=== PATIENT | male | born 1935 | race Caucasian/White ===

== ENCOUNTER 2016-12-18 10:02 | Emergency (ER) | payer MEDICARE, BC ==
[2016-12-18 10:50] LABS: Hemoglobin 15.1 gm/dL (13.5-18.0); Mean Cell Volume 101.9 fl (78-100); Mean Corpuscular Hgb Conc 34.3 g/dl (32-36); Mean Platelet Volume 10.3 fl (6.0-9.5); Neutrophil # 6.8 K/mm3 (1.3-6.0); Neutrophil % 77.5 % (42-75.0); Platelet Count 166 K/mm3 (150-450); Red Blood Count 4.32 M/mm3 (4.7-6.0); Red Cell Distribution Width 11.6 % (11.5-14.0); White Blood Count 8.7 K/mm3 (4.0-10.5)
[2016-12-18 11:01] LABS: Urine Bilirubin 1 mg/dl (NEGATIVE); Urine Blood Negative /ul (NEGATIVE); Urine Ketone 5 mg/dL (NEGATIVE); Urine Nitrite Negative (NEGATIVE); Urine Protein Negative (NEGATIVE); Urine Specific Gravity >=1.030 SP.GR. (1.005-1.030); Urine Urobilinogen Normal (NORMAL); Urine pH 5.5 pH (5.0-7.0)
[2016-12-18 11:02] LABS: Albumin * 3.7 gm/dl (3.4-5.0); Anion Gap 10.7 mmol/L (6.8-13.8); BUN/Creatinine Ratio 10.2 (9.0-21.6); Bilirubin, Total 0.7 mg/dL (0.0-1.1); Calcium * 9.1 mg/dL (7.9-10.9); Potassium 4.7 mmol/L (3.4-4.6); Total Protein 7.6 gm/dL (6.2-8.2)
[2016-12-18 11:04] LABS: Urine Appearance Clear; Urine Color Amber
[2016-12-18 11:11] LABS: Urine Bacteria None Seen; Urine RBC None Seen /hpf (0-5); Urine WBC 0-5 /hpf (0-5)
[2016-12-18] MEDS ORDERED: DIATRIZOATE MEGLU/DIATRIZO SOD 30 ML BTL PO ONE (11:39)
[2016-12-18] MEDS ORDERED: DIATRIZOATE MEGLU/DIATRIZO SOD 30 ML BTL ONE (11:40)
[2016-12-18] MEDS ORDERED: ONDANSETRON HCL/PF 2 MG/ML VIAL IV ONE (14:54)
[2016-12-18] MEDS ORDERED: HYDROmorphone HCL 1 MG/ML DISP.SYRIN IV ONE (14:54)
[2016-12-18] MEDS ORDERED: CIPROFLOXACIN LACTATE/D5W 400 MG/200 ML BAG IV SCH (15:00)
[2016-12-18] MEDS ORDERED: metroNIDAZOLE/SODIUM CHLORIDE 500 MG/100 ML BAG IV SCH (15:00)
[2016-12-18] MEDS ORDERED: PIPERACILLIN SODIUM/TAZOBACTAM 3.375 GM in DEXTROSE 5 % IN WATER 100 ML IV ONE ×2 (15:05)
--- NOTE | 2016-12-18 15:19 | ERNOTE ---
Abdominal HPI - Narrative Date of Service: 12/18/16 - General Chief Complaint: Abdominal Pain Time Seen by Provider: 12/18/16 11:02 Source: patient - Immun/Allergies/Home Medications Immunizatons: IMMUNIZATION HX History of Influenza Vaccine Yes Allergies/Adverse Reactions: Allergies cefdinir [From Omnicef] Allergy (Verified 12/18/16 10:33) metronidazole [From Flagyl] Allergy (Verified 12/18/16 10:33) naproxen Allergy (Verified 12/18/16 10:33) tramadol Allergy (Verified 12/18/16 10:33) Home Medications: HOME MEDICATIONS Allopurinol 09/20/15 [Last Taken Unknown] Citalopram HBr 09/20/15 [Last Taken Unknown] Finasteride 09/20/15 [Last Taken Unknown] Lisinopril 09/20/15 [Last Taken Unknown] Meloxicam 09/20/15 [Last Taken Unknown] Omeprazole 09/20/15 [Last Taken Unknown] Simvastatin 09/20/15 [Last Taken Unknown] Vitamin D 09/20/15 [Last Taken Unknown] Cyclobenzaprine HCl 03/25/16 [Last Taken Unknown] Amox Tr/Potassium Clavulanate [Augmentin 875-125 Tablet] 875 mg PO Q12H #20 tab 12/18/16 [Last Taken Unknown] - History of Present Illness Narrative: left lower quadrant abd pain since 299 today - Patient's Past Medical History Patient History - Medical: GERD Patient History - Cardiac/Respiratory: Hypertension, Hyperlipidemia Patient History - Cancer: No Hx of Cancer Patient History - Surgical Procedures: Other Patient History - Other: None - Social History Living Situations: home Psych History: No pertinent hx Alcohol Use: none Drug Use: none - Immunizations History of Influenza Vaccine: Yes ED Progress - Vital Signs Vital Signs: Vital Signs 12/18/16 12/18/16 10:25 13:00 Temperature 36.4 C L Pulse Rate 72 62 Respiratory 12 14 Rate Blood Pressure 135/60 110/47 O2 Sat by Pulse 96 100 Oximetry - Progress/Reassessment Chief Complaint: Abdominal Pain Departure - Departure Clinical Impression: Diverticulitis Qualifiers: Diverticulitis site: unspecified part of intestinal tract Diverticulitis bleeding: without bleeding Diverticulitis complication: without perforation or abscess Qualified Code(s): K57.92 - Diverticulitis of intestine, part unspecified, without perforation or abscess without bleeding Disposition: Home self-care Condition: Fair Instructions: Diverticulitis, [id number] Referrals: Talon Chappell MD [Primary Care Provider] - Prescriptions: Amox Tr/Potassium Clavulanate [Augmentin 875-125 Tablet] 875 mg PO Q12H #20 tab
[2016-12-18] MEDS ORDERED: ONDANSETRON HCL/PF 2 MG/ML VIAL ONE (15:21)
[2016-12-18] MEDS ORDERED: HYDROmorphone HCL 1 MG/ML DISP.SYRIN ONE (15:21)
[2016-12-18 17:14] VITALS: BP 111/79
== END 2016-12-18 17:10 | disposition home or self-care (01) ==
LOC: ER 10:02
DX: K57.92 Diverticulitis of intestine, part unspecified, without perforation or abscess without bleeding (principal)

== ENCOUNTER 2018-08-27 18:45 | Observation (INO) | payer BC, MEDICARE, OTHER ==
--- NOTE | 2018-08-27 19:10 | ERNOTE ---
Headache ER HPI - Narrative Date of Service: 08/27/18 - General Presenting Symptoms: headache Time Seen by Provider: 08/27/18 19:00 Source: patient, family Exam Limitations: no limitations - Immun/Allergies/Home Medications Immunizations: IMMUNIZATION HX Immunizations Up to Date Yes History of Influenza Vaccine No Allergies/Adverse Reactions: Allergies cefdinir [From Omnicef] Allergy (Verified 08/27/18 18:59) metronidazole [From Flagyl] Allergy (Verified 08/27/18 18:59) naproxen Allergy (Verified 08/27/18 18:59) tramadol Allergy (Verified 08/27/18 18:59) Home Medications: HOME MEDICATIONS NK 08/27/18 [Last Taken Unknown] - Pain Pain Score: 3 - History of Present Illness Narrative: The patient is a 83 year old male who presents for hypertension and frontal headache which has been present since 1600. There are associated symptoms of garbled speech which lasted approximately 2 hours from onset of 1600 and now resolved. The patient reports frontal headache pain, 3/10. There are no alleviating factors. There are no aggravating factors. Previous treatments have included: none. The past medical history includes: hypertension and diverticulitis. The social history is positive for past smoker. The patient has had no ill contacts. Patient states he went fishing yesterday and fell back in boat landing on low back and sacrum with bruising and pain. Patient unsure if he struck his head when he fell back, denies LOC. states today that patient awoke from afternoon nap at approximately 1530- 1600 and upon coming downstairs was found to have garbled speech that at times was incomprehensible. states that speech abnormality lasted approximately 2 hours with complete resolution. Patient was previously prescribed BP medication but has not taken them for the past 6 months. Last documented visit with PCP, , was Dec 2016. Review of Systems - Review of Systems Constitutional: Present: no symptoms reported. Absent: recent illness, fever EYE: Present: no symptoms reported. Absent: vision changes ENT: Present: no symptoms reported. Absent: ear pain, nasal drainage, sore throat Respiratory: Present: no symptoms reported. Absent: shortness of breath, cough Cardiology: Present: no symptoms reported. Absent: chest pain Gastrointestinal/Abdominal: Present: no symptoms reported. Absent: nausea, vomiting, diarrhea Genitourinary: Present: no symptoms reported. Absent: dysuria Musculoskeletal: Present: back pain - lumbar and sacrum. Absent: neck pain Skin: Present: no symptoms reported. Absent: rash Neurological: Present: headache - frontal, other - garbled speech. Absent: weakness, numbness Endocrine: Present: no symptoms reported Hematologic/Lymphatic: Present: no symptoms reported Psych: Present: no symptoms reported All Other Systems: All systems neg except as marked Medical History (Last Reviewed 08/27/18 @ 19:14 by DONAL Yadav) Diverticulitis Hypertension Surgical History: Surgical History (Last Reviewed 08/27/18 @ 19:14 by DONAL Yadav) H/O hernia repair H/O: vasectomy Family History: Family History (Last Updated 08/27/18 @ 20:39 by Celina Figueroa RN) Other No pertinent family history Social History: Preferred Language Faroese Smoking Status Former smoker Psych History No pertinent hx Alcohol Use other Drug Use none Physical Exam - Physical Exam General Appearance: Present: wd/wn, alert, no apparent distress Head Exam: Present: normal inspection, no evidence of injury, no tenderness w palpation Eye Exam: Normal inspection: bilateral, PERRL: bilateral, EOMI: bilateral Neck: Present: normal inspection, nontender, full range of motion Respiratory: Present: no respiratory distress, normal breath sounds, lungs clear Cardiovascular/Chest: Present: regular rate, rhythm, no murmur Peripheral Pulses: N=norm/S=strong/W=weak/B=bound/A=absent: Radial (R): Normal Gastrointestinal/Abdominal: Present: normal bowel sounds, nontender, nondistended, soft, no organomegaly Back Exam: Present: normal inspection, vertebral tenderness - mid to lower lumber and sacrum, ecchymosis to right upper buttock Neurological Exam: Present: alert, oriented, normal mood/affect, no motor/sensory deficits, official greeter II-XII nml as tested, normal cerebellar test Skin Exam: Present: normal color, warm/dry ED Progress - Date and Time Seen: Date and Time: 08/27/18 20:42 Discussed with , will admit for neuro monitoring due to presumed TIA with resolution, previous garbled speech. Will restart patient on previously prescribed Lisinopril for hypertension. - Results and Orders Patient's Lab Results:: I have reviewed the patient's lab results. - Vital Signs Patient's Vital Signs:: I have reviewed the patient's vital signs. Vital Signs: Vital Signs 08/27/18 18:52 Temperature 36.6 C Pulse Rate 74 Respiratory Rate 18 Blood Pressure 177/75 H O2 Sat by Pulse Oximetry 96 - EKG EKG: NSR - bradycardia EKG read: Reviewed by me EKG Comments: Reviewed with . - X-Ray X-Ray #1 X-Ray: chest Interpretation: Reviewed by me X-ray Comments: X-RAY REPORT ~[id number] RAD/Chest PA & Lateral *~ Exam Date: 08/27/2018 19:10 Ordering Physician: Kirsten Modi Chest PA Lateral * INDICATION: Chest Pain. COMPARISON STUDY: None. FINDINGS: Lungs: Normal lung volumes. No focal consolidation. Normal pulmonary vasculature. Pleura: No pleural effusion or pneumothorax. Heart and Mediastinum: The cardiomediastinal silhouette is within normal limits. Skeletal Structures and Soft Tissues: The osseous structures and soft tissues are within normal limits. IMPRESSION: No acute cardiopulmonary process. Electronically signed by Yue Diehl D.O.. X-Ray #2 X-Ray: lumbosacral Interpretation: Reviewed by nj - CT/Ultrasound CT/Ultrasound Narrative: X-RAY REPORT ~[id number] CT/CT Head W/O *~ Exam Date: 08/27/2018 19:10 Ordering Physician: Kirsten Modi CT Head W/O * Date: 08/27/2018 7:10 PM Clinical Indication: TIA . Additional technologist comments: Slurred speech and confusion joint. Fell yesterday. Comparison: Head CT dated 08/23/2013. Technique: 5 mm axial tomographic images were obtained of the head without contrast. These were viewed on brain and bone windows. Individualized dose optimization technique was used for the performed procedure including automated exposure control, adjustment of the mA and/or kV according to patient size and/or the iterative reconstruction technique. Findings: Mild generalized cerebral and cerebellar volume loss. Mild nonspecific periventricular hypoattenuation, most commonly seen with chronic small vessel ischemic disease. Calcified atherosclerosis of the bilateral cavernous and paraclinoid internal carotid arteries and intracranial vertebral arteries. No intra- or extra-axial mass or fluid collection. No acute hemorrhage. The ventricles are normal in size, shape, and morphology. The hutchinson-white matter junction is normal. The basilar cisterns are patent. There is mucosal thickening of the right maxillary sinus.. The visualized portions of the orbits and globes are normal. The mastoid air cells are clear. No aggressive osseous lesion or fracture. Impression: No acute intracranial process. Mild cerebral volume loss. Mild chronic small vessel ischemic disease. Mucosal thickening of right maxillary sinus. If there is persistent concern for an acute intracranial abnormality, recommend further evaluation with an MRI of the brain. Electronically signed by Yue Diehl D.O.. - Progress/Reassessment Chief Complaint: Headache Departure Clinical Impression: TIA (transient ischemic attack) Hypertension Qualifiers: Hypertension type: essential hypertension Qualified Code(s): I10 - Essential (primary) hypertension - Departure Disposition: Still a patient Condition: Good
[2018-08-27 19:30] LABS: Hemoglobin 13.8 gm/dL (13.5-18.0); Mean Cell Volume 102.8 fl (78-100); Mean Corpuscular Hemoglobin 34.6 pg (27-31); Mean Corpuscular Hgb Conc 33.7 g/dl (32-36); Mean Platelet Volume 10.8 fl (8-11.3); Neutrophil # 3.4 K/mm3 (1.3-6.0); Neutrophil % 64.9 % (42-75.0); Platelet Count 148 K/mm3 (150-450); Red Blood Count 3.99 M/mm3 (4.7-6.0); Red Cell Distribution Width 11.9 % (11.5-14.0); White Blood Count 5.3 K/mm3 (4.0-10.5)
[2018-08-27 19:35] LABS: Prothrombin Time (Patient) 10.2 Seconds (9.0-11.0)
[2018-08-27 19:36] LABS: INR 1.02 INR (0.90-1.10); Partial Thrombolplastin Time 25.7 Seconds (24-32)
[2018-08-27 19:42] LABS: ALT 27 U/L (19-67); AST 28 U/L (0-48); Albumin * 3.6 gm/dl (3.4-5.0); Alkaline Phosphatase * 48 U/L (50-170); Anion Gap 12.5 mmol/L (6.8-13.8); BUN/Creatinine Ratio 13.2 (9.0-21.6); Bilirubin, Total 0.5 mg/dL (0.0-1.1); Blood Urea Nitrogen 19 mg/dL (6-23); Ca. Corrected For Albumin 8.4 mg/dL (8.4-10.2); Calcium * 8.4 mg/dL (7.9-10.9); Carbon Dioxide 24.9 mmol/L (24-32.6); Chloride 102 mmol/L (97-106); Glucose * 97 mg/dL (70-110); Potassium 3.4 mmol/L (3.4-4.6); Sodium 136 mmol/L (132-142)
[2018-08-27 19:47] LABS: Troponin I Less than 0.017 ng/mL (0.00-0.10)
[2018-08-27] MEDS ORDERED: LISINOPRIL 10 MG TABLET PO ONE (20:29)
[2018-08-27] MEDS ORDERED: LISINOPRIL 10 MG TABLET ONE (20:33)
[2018-08-27] MEDS ORDERED: ASPIRIN 81 MG TAB.CHEW PO ONE (20:47)
[2018-08-27] MEDS ORDERED: ASPIRIN 81 MG TAB.CHEW ONE (20:51)
--- NOTE | 2018-08-28 08:08 | HP ---
Chief Complaint - Chief Complaint Date of Service: 08/28/18 Time of Service: 08:07 Chief Complaint: garbled speech/headache History of Present Illness: Sven Knutson, , is an 83-year-old white male, patient of Dr. Chappell, past medical history of hypertension , hyperlipidemia, who was admitted on 08/27/2018 because of headache and garbled speech. 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 He had bruising in his back and pain after that. He went to take a nap on the afternoon of admission and woke up with garbled speech . He just couldn't form the words he wanted to express. This lasted for anywhere from 1-2 hours but by the time they got to the emergency room his speech was back to his baseline. A head CT scan was done which showed no evidence of acute intracranial process. It did show chronic microvascular disease and volume low-dose. There was also evidence of right maxillary sinusitis. His blood pressure was 181/70. He has not been taking his blood pressure medicine for the last 6 months and hasn't seen his primary care physician for some time. He was then admitted for observation and neurochecks. Medical History (Last Reviewed 08/27/18 @ 22:55 by Tess Sheppard RN) Diverticulitis Hypertension Surgical History: Surgical History (Last Reviewed 08/27/18 @ 22:55 by Tess Sheppard RN) H/O hernia repair H/O: vasectomy Family History: Family History (Last Updated 08/27/18 @ 23:00 by Tess Sheppard RN) Mother Diabetes Gangrene Multiple sclerosis Cancer Father Drowning Sister Anorexia Sister Diabetes Social History: Patient Lives/Resources Home Utilized Occupation retired Preferred Language Polish Do you have any yazdanism or No cultural preference? Smoking Status Former smoker Have you smoked in the past 12 No months Psych History No pertinent hx Alcohol Use other Drug Use none Review Of Systems (GEN) - Review of Systems Generalized/Overall Review: Absent: Weakness, Chills, Fever Respiratory: Absent: Cough, Shortness of Breath Cardiac: Absent: Chest Pain, Edema, Palpitations Abdominal: Absent: Nausea, Vomiting Genitourinary: Absent: Urgency, Frequency Neurological: Present: Headache Immunizations: IMMUNIZATION HX Immunizations Up to Date Yes History of Influenza Vaccine No Allergies/Adverse Reactions: Allergies Allergy/AdvReac Type Severity Reaction Status Date / Time cefdinir [From Omnicef] Allergy Verified 08/27/18 23:01 metronidazole [From Flagyl] Allergy Verified 08/27/18 23:01 naproxen Allergy Verified 08/27/18 23:01 tramadol Allergy Verified 08/27/18 23:01 Home Medications: HOME MEDICATIONS Aspirin [Adult Aspirin] 81 mg PO DAILY #30 tablet. 08/28/18 [Last Taken Unknown] Lisinopril [Zestril] 40 mg PO DAILY #30 tablet 08/28/18 [Last Taken Unknown] Rosuvastatin Calcium [Crestor] 10 mg PO DAILY #30 tab 08/28/18 [Last Taken Unknown] Exam - Exam Vital Signs: Vital Signs - Last Taken Temp 36.8 C 08/28/18 07:35 Pulse 62 08/28/18 07:35 Resp 20 08/28/18 07:35 BP 127/70 08/28/18 07:35 Pulse Ox 98 08/28/18 07:35 Constitutional: Present: Alert, Oriented x3, Cooperative ENT Exam: Present: hearing grossly normal Eye Exam: bilateral eye: normal inspection, PERRL, EOMI Neck: Present: supple Respiratory: Present: normal breath sounds, No rales, No wheezing Cardiovascular/Chest: Present: regular rate, rhythm, no JVD, no murmur Abdomen: Present: Normal bowel sounds, soft, nontender, nondistended Extremity: Present: no pedal edema, no calf tenderness Neurologic: Present: supreme court justice II-XII nml as tested, no motor/sensory deficits, oriented x 3 Diagnostic Studies: Abnormal Lab Results 08/27/18 08/27/18 08/27/18 Range/Units 19:14 19:14 19:14 RBC 3.99 L (4.7-6.0) M/mm3 Hct 41.0 L (42.0-52.0) % MCV 102.8 H (78-100) fl MCH 34.6 H (27-31) pg Plt Count 148 L (150-450) K/mm3 Monocytes % 9.3 H (0.0-9) % Eosinophils % 3.6 H (0.0-3.0) % Lymphocytes # 1.10 L (1.5-3.5) k/mm3 ESR 11 H (0-10) mm/hr Creatinine 1.44 H (0.4-1.4) mg/dL Est GFR (Non-Af Amer) 50 L (60-130) mL/min Alkaline Phosphatase 48 L (50-170) U/L Laboratory Results WBC 5.3 K/mm3 (4.0-10.5) 08/27/18 19:14 RBC 3.99 M/mm3 (4.7-6.0) L 08/27/18 19:14 Hgb 13.8 gm/dL (13.5-18.0) 08/27/18 19:14 Hct 41.0 % (42.0-52.0) L 08/27/18 19:14 MCV 102.8 fl (78-100) H 08/27/18 19:14 MCH 34.6 pg (27-31) H 08/27/18 19:14 MCHC 33.7 g/dl (32-36) 08/27/18 19:14 RDW 11.9 % (11.5-14.0) 08/27/18 19:14 Plt Count 148 K/mm3 (150-450) L 08/27/18 19:14 MPV 10.8 fl (8-11.3) 08/27/18 19:14 Immature Gran % (Auto) 0.40 % (0.001-0.429) 08/27/18 19:14 Immature Gran # (Auto) 0.02 K/mm3 (0.000-0.0310) 08/27/18 19:14 Neutrophils % 64.9 % (42-75.0) 08/27/18 19:14 Lymphocytes % 20.9 % (20-51) 08/27/18 19:14 Monocytes % 9.3 % (0.0-9) H 08/27/18 19:14 Eosinophils % 3.6 % (0.0-3.0) H 08/27/18 19:14 Basophils % 0.9 % (0.0-1.0) 08/27/18 19:14 Nucleated RBC % 0.0 k/mm3 (0-1) 08/27/18 19:14 Neutrophils # 3.4 K/mm3 (1.3-6.0) 08/27/18 19:14 Lymphocytes # 1.10 k/mm3 (1.5-3.5) L 08/27/18 19:14 Monocytes # 0.5 k/mm3 (0.0-1.0) 08/27/18 19:14 Eosinophils # 0.2 k/mm3 (0.0-0.7) 08/27/18 19:14 Absolute Basophils 0.1 k/mm3 (0.0-0.1) 08/27/18 19:14 ESR 11 mm/hr (0-10) H 08/27/18 19:14 PT 10.2 Seconds (9.0-11.0) 08/27/18 19:14 INR (Anticoag Therapy) 1.02 INR (0.90-1.10) 08/27/18 19:14 PTT ([place]) 25.7 Seconds (24-32) 08/27/18 19:14 Sodium 136 mmol/L (132-142) 08/27/18 19:14 Plasma Sodium 136 mmol/L (130-142) 08/27/18 19:14 Potassium 3.4 mmol/L (3.4-4.6) 08/27/18 19:14 Chloride 102 mmol/L (97-106) 08/27/18 19:14 Carbon Dioxide 24.9 mmol/L (24-32.6) 08/27/18 19:14 Anion Gap 12.5 mmol/L (6.8-13.8) 08/27/18 19:14 BUN 19 mg/dL (6-23) 08/27/18 19:14 Creatinine 1.44 mg/dL (0.4-1.4) H 08/27/18 19:14 Est GFR (Non-Af Amer) 50 mL/min (60-130) L 08/27/18 19:14 BUN/Creatinine Ratio 13.2 (9.0-21.6) 08/27/18 19:14 Random Glucose 97 mg/dL (70-110) 08/27/18 19:14 Calcium 8.4 mg/dL (7.9-10.9) 08/27/18 19:14 Calcium Adj for Albumin 8.4 mg/dL (8.4-10.2) 08/27/18 19:14 Total Bilirubin 0.5 mg/dL (0.0-1.1) 10/11/18 19:14 AST 28 U/L (0-48) 08/27/18 19:14 ALT 27 U/L (19-67) 08/27/18 19:14 Alkaline Phosphatase 48 U/L (50-170) L 08/27/18 19:14 Troponin I Less than 0.017 ng/mL (0.00-0.10) 08/27/18 19:14 Total Protein 7.0 gm/dL (6.2-8.2) 08/27/18 19:14 Albumin 3.6 gm/dl (3.4-5.0) 08/27/18 19:14 Assessment/Plan - Assessment/Plan (1) TIA (transient ischemic attack) Assessment: will start him on babay ASA. will add lipid profile and may need to be started on statiin. Problem: Resolved (2) Hypertension Assessment: will restart him on his Lisinopril. Problem: Chronic Qualifiers: Hypertension type: essential hypertension Qualified Code(s): I10 - Es sential (primary) hypertension (3) Hyperlipidemia Problem: Chronic Qualifiers: Hyperlipidemia type: mixed hyperlipidemia Qualified Code(s): E78.2 - Mixed hyperlipidemia
--- NOTE | 2018-08-28 08:25 | DS ---
(1) TIA (transient ischemic attack) Problem: Resolved (2) Hypertension Problem: Chronic Qualifiers: Hypertension type: essential hypertension Qualified Code(s): I10 - Essential (primary) hypertension (3) Hyperlipidemia Problem: Chronic Qualifiers: Hyperlipidemia type: mixed hyperlipidemia Qualified Code(s): E78.2 - Mixed hyperlipidemia Description of Stay: Sven Knutson, , is an 83-year-old white male, patient of Dr. Chappell, past medical history of hypertension , hyperlipidemia, who was admitted on 08/27/2018 because of headache and garbled speech. 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 He had bruising in his back and pain after that. He went to take a nap on the afternoon of admission and woke up with garbled speech . He just couldn't form the words he wanted to express. This lasted for anywhere from 1-2 hours but by the time they got to the emergency room his speech was back to his baseline. A head CT scan was done which showed no evidence of acute intracranial process. It did show chronic microvascular disease and volume low-dose. There was also evidence of frontal sinusitis. His blood pressure was 181/70. He has not been taking his blood pressure medicine for the last 6 months and hasn't seen his primary care physician for some time. He was then admitted for observation and neurochecks. Overnight , the patient remianed nurologically stable and his BP has gone down to the 120's SBP. We will discharged him today on a baby ASA and Lisinopril and low dose Crestor. Will add a low dose stain medication. follow up with is PCP in 1 week. Artur schedule him a MRI and CUS as outpatient. Procedures Performed: none Results and Findings: Lab Pending Results 08/27/18 19:14: WBC 5.3, RBC 3.99 L, Hgb 13.8, Hct 41.0 L, MCV 102.8 H, MCH 34.6 H, MCHC 33.7, RDW 11.9, Plt Count 148 L, MPV 10.8, Immature Gran % (Auto) 0.40, Immature Gran # (Auto) 0.02, Neutrophils % 64.9, Lymphocytes % 20.9, Monocytes % 9.3 H, Eosinophils % 3.6 H, Basophils % 0.9, Nucleated RBC % 0.0, Neutrophils # 3.4, Lymphocytes # 1.10 L, Monocytes # 0.5, Eosinophils # 0.2, Absolute Basophils 0.1 08/27/18 19:14: ESR 11 H 08/27/18 19:14: PT 10.2, INR (Anticoag Therapy) 1.02, PTT ([place]) 25.7 08/27/18 19:14: Sodium 136, Plasma Sodium 136, Potassium 3.4, Chloride 102, Carbon Dioxide 24.9, Anion Gap 12.5, BUN 19, Creatinine 1.44 H, Est GFR (Non-Af Amer) 50 L, BUN/Creatinine Ratio 13.2, Random Glucose 97, Calcium 8.4, Calcium Adj for Albumin 8.4, Total Bilirubin 0.5, AST 28, ALT 27, Alkaline Phosphatase 48 L, Troponin I Less than 0.017, Total Protein 7.0, Albumin 3.6 Discharge Location: Home Disposition: Home self-care Condition: Good Discharge Activity: Activity as tolerated Discharge Diet: Low salt Referrals: Talon Chappell MD [Primary Care Provider] - Problem Oriented Discharge Instructions to Patient/Family: Transient Ischemic Attack, [id number], Hypertension, [id number] Additional Patient Instructions (free text): Follow up with Dr. Chappell on 09/09/18 at 10:45am. Prescriptions (Any new or edited meds): Aspirin [Adult Aspirin] 81 mg PO DAILY #30 tablet. Lisinopril [Zestril] 40 mg PO DAILY #30 tablet Rosuvastatin Calcium [Crestor] 10 mg PO DAILY #30 tab Complete Home Medications List: Complete Home Medication List: Aspirin [Adult Aspirin] 81 mg PO DAILY #30 tablet. 08/28/18 Lisinopril [Zestril] 40 mg PO DAILY #30 tablet 08/28/18 Rosuvastatin Calcium [Crestor] 10 mg PO DAILY #30 tab 08/28/18 Amb Orders for Discharge: MRI Brain W/O Time Frame: 1 Week, Location: Radiology US Carotid Duplex Comp Bilat * Time Frame: 1 Week, Location: Radiology
[2018-08-28 10:02] VITALS: BP 133/62
[2018-08-28 10:17] LABS: Chol/HDL Risk Ratio 2.7 mg/dL (3.3-5.0)
== END 2018-08-28 10:50 | disposition home or self-care (01) ==
LOC: MS 18:45 → ER 18:45 → MS 21:00
PROVIDERS: ADMIT Internal Medicine; ATTEND Family Medicine
CPT/HCPCS: 36415; 70450; 71020; 71046; 72110; 80053; 80061; 84484; 85025; 85610; 85652; 85730; 90686; 93005; 99285; G0008; G0378